=== PATIENT | female | born 1980 | race Caucasian/White ===

== ENCOUNTER 2019-04-03 09:26 | Emergency (ER) | payer BC, MEDICAID ==
[~2019-04-03] VITALS: Ht 162.6 cm; Wt 90.8 kg
[2019-04-03 09:39] VITALS: BP 136/91
[2019-04-03 10:26] LABS: BASOPHILS # (AUTO) 0.12 x10^3/uL (0-0.1); BASOPHILS % (AUTO) 1 % (0-1); EOSINOPHILS # (AUTO) 0.32 x10^3/uL (0-0.4); EOSINOPHILS % (AUTO) 2 % (1-7); LYMPHOCYTES % (AUTO) 15 % (22-44); MD NO; MEAN CORPUSCULAR HEMOGLOBIN 32.5 pg (27.0-34.8); MEAN CORPUSCULAR HGB CONC 34.7 g/dL (32.4-35.8); MEAN CORPUSCULAR VOLUME 93.7 fL (80-100); MEAN PLATELET VOLUME 8.1 fL (7.4-10.4); MONOCYTES # (AUTO) 0.86 x10^3/uL (0.2-0.8); MONOCYTES % (AUTO) 5 % (2-9); NEUTROPHILS # (AUTO) 13.89 x10^3/uL (1.8-6.8); NEUTROPHILS % (AUTO) 78 % (42-75); PLATELET COUNT 387 x10^3/uL (130-400); RED BLOOD COUNT 4.49 x10^6/uL (3.82-5.3); RED CELL DISTRIBUTION WIDTH 13.7 % (9.6-15.2)
[2019-04-03 10:37] LABS: ALANINE AMINOTRANSFERASE 32 U/L (12-78); ALBUMIN 3.2 g/dL (3.4-5.0); ANION GAP 6 mmol/L (5-15); CALCIUM 8.3 mg/dL (8.5-10.1); CHLORIDE 109 mmol/L (98-107); CREATININE 0.81 mg/dL (0.55-1.02)
[2019-04-03 10:41] LABS: ALKALINE PHOSPHATASE 69 U/L (45-117); BILIRUBIN,TOTAL 0.4 mg/dL (0.2-1.0); TOTAL PROTEIN 6.8 g/dL (6.4-8.2)
[2019-04-03 11:01] LABS: MICROSCOPIC NOT IND
[2019-04-03 11:06] LABS: CULTURE INDICATED? NO
== END 2019-04-03 13:25 ==
LOC: ED 12:39
DX: K57.32 Diverticulitis of large intestine without perforation or abscess without bleeding (principal); F41.1 Generalized anxiety disorder; F32.9 Major depressive disorder, single episode, unspecified
CPT/HCPCS: 36415; 74176; 80053; 81003; 83690; 84703; 85025; 99284

== ENCOUNTER 2019-06-06 14:52 | Emergency (ER) | payer MEDICAID, OTHER ==
[~2019-06-06] VITALS: Ht 162.6 cm; Wt 86.0 kg
[2019-06-06 14:55] VITALS: BP 153/86
--- NOTE | 2019-06-06 14:59 | NUR ---
cervical collar placed in triage, patient transported in wheelchair.
[2019-06-06] MEDS ORDERED: ONDANSETRON ODT 4 MG PO ONE (15:00)
[2019-06-06] MEDS ORDERED: ONDANSETRON ODT 4 MG ONE (15:03)
[2019-06-06] MEDS ORDERED: METHOCARBAMOL 750 MG TABLET PO ONE (16:30)
[2019-06-06] MEDS ORDERED: METHOCARBAMOL 750 MG TABLET ONE (16:40)
--- NOTE | 2019-06-06 16:45 | NUR ---
PT MEDICATED PER EMAR
--- NOTE | 2019-06-06 16:50 | NUR ---
Patient/Caregiver given discharge instructions and they have confirmed that they understand the instructions. Patient ambulatory with steady gait.
== END 2019-06-06 16:52 | disposition home or self-care (01) ==
LOC: ED 16:15
DX: S16.1XXA Strain of muscle, fascia and tendon at neck level, initial encounter (principal); S00.91XA Abrasion of unspecified part of head, initial encounter; S09.90XA Unspecified injury of head, initial encounter; J01.00 Acute maxillary sinusitis, unspecified; F17.200 Nicotine dependence, unspecified, uncomplicated; F32.9 Major depressive disorder, single episode, unspecified; Y04.0XXA Assault by unarmed brawl or fight, initial encounter; Y93.89 Activity, other specified; Y92.009 Unspecified place in unspecified non-institutional (private) residence as the place of occurrence of the external cause; Y99.8 Other external cause status
CPT/HCPCS: 70450; 72125; 99284; Q0162

== ENCOUNTER 2020-12-13 14:49 | Emergency (ER) | payer MEDICAID ==
[~2020-12-13] VITALS: Ht 162.6 cm; Wt 63.1 kg
[2020-12-13] MEDS ORDERED: BUPIVACAINE 0.25% ONE (15:28)
[2020-12-13] MEDS ORDERED: DIAZEPAM 5 MG TABLET ONE (15:29)
[2020-12-13] MEDS ORDERED: LIDODERM 5% PATCH TD ONE ×2 (15:29→15:30)
[2020-12-13] MEDS ORDERED: LIDOCAINE-MPF 1%, 5ML ONE (15:29)
[2020-12-13] MEDS ORDERED: KETOROLAC 60 MG/2 ML ONE (15:29)
[2020-12-13] MEDS ORDERED: DIAZEPAM 5 MG TABLET PO ONE (15:30)
[2020-12-13] MEDS ORDERED: BUPIVACAINE 0.25% INFIL ONE (15:30)
[2020-12-13] MEDS ORDERED: KETOROLAC 30 MG/1 ML IM ONE (15:30)
[2020-12-13] MEDS ORDERED: LIDOCAINE 1%, 10ML INFIL ONE (15:30)
[2020-12-13] MEDS ORDERED: ZIPRASIDONE 20 MG INJ IM ONE ×2 (15:51→16:00)
--- NOTE | 2020-12-13 15:55 | NUR ---
PT SCREAMING HYSTERICALLY. MEDS ADMINISTERED. PROVIDER UPDATED. FRIEND AT BEDSIDE FOR SUPPORT.
[2020-12-13 17:35] VITALS: BP 126/71
== END 2020-12-13 18:03 | disposition home or self-care (01) ==
LOC: ED 15:35
DX: M25.512 Pain in left shoulder (principal); M79.622 Pain in left upper arm; M62.838 Other muscle spasm; M54.2 Cervicalgia; I51.7 Cardiomegaly; F17.200 Nicotine dependence, unspecified, uncomplicated
CPT/HCPCS: 20552; 93005; 96372; 99284; J1885; J3486

== ENCOUNTER 2020-12-15 09:12 | Emergency (ER) | payer MEDICAID ==
[~2020-12-15] VITALS: Ht 160 cm; Wt 60.0 kg
[2020-12-15] MEDS ORDERED: KETOROLAC 30 MG/1 ML ONE (09:38)
[2020-12-15] MEDS ORDERED: HYDROmorphone 1 MG/ML, 1ML INJ ONE ×2 (09:38→12:36)
[2020-12-15] MEDS: HYDROmorphone 1 MG/ML, 1ML INJ IVPush PRN ×2 (09:50→12:41)
--- NOTE | 2020-12-15 09:51 | NUR ---
MOVD TO ROOM 21 MEDICATED PER EMAR FOR 10/10 PAIN. PATIENT SCREAMING AT THE TOP OF HER LUNGS.
[2020-12-15] MEDS ORDERED: KETOROLAC 30 MG/1 ML IV ONE (10:00)
[2020-12-15] MEDS ORDERED: SODIUM CHLORIDE FLUSH 10ML SYR IVF ONE (10:00)
[2020-12-15 10:14] LABS: ALBUMIN 3.8 g/dL (3.4-5.0); ANION GAP 6 mmol/L (5-15); C-REACTIVE PROTEIN, QUANT 0.07 mg/dL (0.02-0.49); CALCIUM 8.7 mg/dL (8.5-10.1); CHLORIDE 109 mmol/L (98-107); CREATININE 0.72 mg/dL (0.55-1.02)
[2020-12-15 10:15] LABS: BASOPHILS % (AUTO) 1 % (0-1); EOSINOPHILS % (AUTO) 2 % (1-7); LYMPHOCYTES % (AUTO) 38 % (22-44); MEAN CORPUSCULAR HEMOGLOBIN 31.1 pg (27.0-34.8); MEAN CORPUSCULAR HGB CONC 33.4 g/dL (32.4-35.8); MEAN PLATELET VOLUME 7.7 fL (7.4-10.4); MONOCYTES % (AUTO) 7 % (2-9); NEUTROPHILS % (AUTO) 52 % (42-75); PLATELET COUNT 384 x10^3/uL (130-400); RED BLOOD COUNT 4.51 x10^6/uL (3.82-5.3); RED CELL DISTRIBUTION WIDTH 13.1 % (9.6-15.2)
[2020-12-15 10:19] LABS: MD NO
[2020-12-15 11:39] LABS: HCT (SEDRATE) 42.1 % (34.6-47.8)
--- NOTE | 2020-12-15 12:42 | NUR ---
TASK RN: PT CRYING REFUSING TO ATTEMPT TO GET UP. D/C INST DISCUSSED. PT MED NOTED WITH PLAN TO D/C AT 1315 WITH [employer]I V[employer]CHER.
[2020-12-15 12:55] VITALS: BP 146/93
--- NOTE | 2020-12-15 12:55 | NUR ---
TASK RN: PT SLEEPING, RESP EVEN NON-LABORED. VSS
--- NOTE | 2020-12-15 13:22 | NUR ---
TASK RN: Patient/Caregiver given discharge instructions and they have confirmed that they understand the instructions. Patient ambulatory with steady gait.
== END 2020-12-15 13:23 | disposition home or self-care (01) ==
LOC: ED 10:29
DX: M54.12 Radiculopathy, cervical region (principal); M54.16 Radiculopathy, lumbar region; M54.14 Radiculopathy, thoracic region
CPT/HCPCS: 36415; 72125; 80048; 82040; 85025; 85651; 86140; 96361; 96374; 96375; 96376; 99284; J1170; J1885